=== PATIENT | female | born 1960 | race Caucasian/White ===

== ENCOUNTER 2017-04-09 16:50 | Inpatient (IN) | payer OTHER ==
[~2017-04-09] VITALS: Ht 162.6 cm; Wt 50.9 kg
[~2017-04-09 16:50] MED LIST: BUPR-175 PO; MELO15TA2 PO; ZOLO25TA PO
[2017-04-09 17:25] VITALS: BP 126/66; PULSE 110; RESP 20; TEMP 97.3; O2SAT 97
--- NOTE | 2017-04-09 18:40 | PD ---
HPI Chief Complaint: Suicide Ideation/Attempt Time Seen by Provider: 18:40 Travel History International Travel<30 days: No Contact w/Intl Traveler<30days: No Traveled to known affect area: No History of Present Illness HPI 56-year-old female presents to emergency department under Gómez act for psychiatric evaluation. Patient states she texted her grandson that she was going to kill herself. Patient states she denies suicidal homicidal ideations, but is overwhelmed with her life currently. Days that she does not need to be here. Denies illicit drug use. States that she did drink alcohol today but is not typically. Patient has history of RA and is on methotrexate and pain control, otherwise she states that she does not take any other medications. She has no other symptoms to report at this time. [facility] Past Medical History Anxiety: Yes Depression: Yes Diminished Hearing: No ?: Not Past Surgical History Other Surgery: Yes (INGUINAL HERNIA REPAIR) Social History Alcohol Use: No Tobacco Use: Yes (1 PPD) Substance Use: No Allergies-Medications (Allergen,Severity, Reaction): Coded Allergies: No Known Allergies (Verified , 04/09/17) Reported Meds & Prescriptions Reported Meds & Active Scripts Active Review of Systems Except as stated in HPI: all other systems reviewed are Neg Physical Exam Narrative GENERAL: Thin female patient, anxious, but in no acute distress SKIN: Focused skin assessment warm/dry. Full areas of ecchymosis on the bilateral upper extremities. HEAD: Normocephalic. EYES: No scleral icterus. No injection or drainage. NECK: Supple, trachea midline. No JVD or lymphadenopathy. CARDIOVASCULAR: Tachycardic rate and rhythm without murmurs, gallops, or rubs. RESPIRATORY: Breath sounds equal bilaterally. No accessory muscle use. GASTROINTESTINAL: Abdomen soft, non-tender, nondistended. MUSCULOSKELETAL: No cyanosis, or edema. BACK: Nontender without obvious deformity. No CVA tenderness. Data Data Last Documented VS Vital Signs Date Time Temp Pulse Resp B/P (MAP) Pulse Ox O2 Delivery O2 Flow Rate FiO2 04/09/17 17:25 97.3 110 20 126/66 (86) 97 Orders Orders Complete Blood Count With Diff (04/09/17 18:04) Comprehensive Metabolic Panel (04/09/17 18:04) Psych Screen (04/09/17 18:04) Urinalysis - C+S If Indicated (04/09/17 18:40) Drug Screen, Random Urine (04/09/17 18:40) Alcohol (Ethanol) (04/09/17 18:40) Salicylates (Aspirin) (04/09/17 18:40) Coag Profile (04/09/17 18:40) Labs Laboratory Tests Test 04/09/17 18:20 04/09/17 18:30 04/09/17 18:52 White Blood Count 7.4 TH/MM3 Red Blood Count 4.46 MIL/MM3 Hemoglobin 14.1 GM/DL Hematocrit 42.3 % Mean Corpuscular Volume 94.8 FL Mean Corpuscular Hemoglobin 31.5 PG Mean Corpuscular Hemoglobin Concent 33.3 % Red Cell Distribution Width 14.2 % Platelet Count 314 TH/MM3 Mean Platelet Volume 7.4 FL Neutrophils (%) (Auto) 82.4 % Lymphocytes (%) (Auto) 10.6 % Monocytes (%) (Auto) 5.4 % Eosinophils (%) (Auto) 0.6 % Basophils (%) (Auto) 1.0 % Neutrophils # (Auto) 6.1 TH/MM3 Lymphocytes # (Auto) 0.8 TH/MM3 Monocytes # (Auto) 0.4 TH/MM3 Eosinophils # (Auto) 0.0 TH/MM3 Basophils # (Auto) 0.1 TH/MM3 CBC Comment DIFF FINAL Differential Comment Blood Urea Nitrogen 12 MG/DL Creatinine 0.89 MG/DL Random Glucose 99 MG/DL Total Protein 7.7 GM/DL Albumin 4.2 GM/DL Calcium Level 9.4 MG/DL Alkaline Phosphatase 69 U/L Aspartate Amino Transf (AST/SGOT) 24 U/L Alanine Aminotransferase (ALT/SGPT) 38 U/L Total Bilirubin 0.3 MG/DL Sodium Level 139 MEQ/L Potassium Level 4.0 MEQ/L Chloride Level 104 MEQ/L Carbon Dioxide Level 24.5 MEQ/L Anion Gap 11 MEQ/L Estimat Glomerular Filtration Rate 65 ML/MIN Urine Color LIGHT-YELLOW Urine Turbidity CLEAR Urine pH 5.5 Urine Specific [place] 1.008 Urine Protein NEG mg/dL Urine Glucose (UA) NEG mg/dL Urine Ketones NEG mg/dL Urine Occult Blood NEG Urine Nitrite NEG Urine Bilirubin NEG Urine Urobilinogen LESS THAN 2.0 MG/DL Urine Leukocyte Esterase NEG Urine RBC LESS THAN 1 /hpf Urine WBC LESS THAN 1 /hpf Urine Squamous Epithelial Cells <1 /hpf Urine Bacteria RARE /hpf Urine Mucus FEW /lpf Microscopic Urinalysis Comment CULT NOT INDICATED Urine Opiates Screen NEG Urine Barbiturates Screen NEG Urine Amphetamines Screen NEG Urine Benzodiazepines Screen NEG Urine Cocaine Screen NEG Urine Cannabinoids Screen NEG Prothrombin Time 10.2 SEC Prothromb Time International Ratio 0.9 RATIO Activated Partial Thromboplast Time 23.3 SEC Salicylates Level LESS THAN 1.7 MG/DL MDM Medical Decision Making Medical Screen Exam Complete: Yes Emergency Medical Condition: Yes Medical Record Reviewed: Yes Differential Diagnosis Mood disorder versus personality disorder versus adjustment reaction disorder Narrative Course 56-year-old female presents to the department under Gómez act for psychiatric evaluation. Patient appears anxious but without distress. She is tachycardic, likely due to her anxiety. Work is without acute concern. Patient is medically cleared to undergo psychiatric screening for further evaluation and disposition. Mental health screening discussed with the patient. Psychiatric screen ordered. Diagnosis Primary Impression: Adjustment reaction with anxiety and depression Condition: Stable Mariam Willis Apr 09, 2017 18:40
[2017-04-09 19:18] LABS: AUTOMATED NEUTROPHIL # 6.1 TH/MM3 (1.8-7.7); BASOPHIL # 0.1 TH/MM3 (0-0.2); EOSINOPHIL % 0.6 % (0.0-4.0); HEMATOCRIT 42.3 % (35.0-46.0); HEMO FLAGS DIFF FINAL; LYMPH % 10.6 % (9.0-44.0); LYMPHOCYTE # 0.8 TH/MM3 (1.0-4.8); MEAN CELL VOLUME 94.8 FL (80.0-100.0); MEAN CORPUSCULAR HEMOGLOBIN 31.5 PG (27.0-34.0); MEAN CORPUSCULAR HGB CONC 33.3 % (32.0-36.0); MONO % 5.4 % (0.0-8.0); NEUT % 82.4 % (16.0-70.0); PLATELET COUNT 314 TH/MM3 (150-450); RED BLOOD COUNT 4.46 MIL/MM3 (4.00-5.30); RED CELL DISTRIBUTION WIDTH 14.2 % (11.6-17.2); WHITE BLOOD COUNT 7.4 TH/MM3 (4.0-11.0)
[2017-04-09 19:25] LABS: BACTERIA, URINE RARE /hpf; BLOOD, URINE NEG (NEG); COMMENT (UR) CULT NOT INDICATED; CULTURE IF INDICATED CULT NOT INDICATED; GLUCOSE,URINE NEG (NEG); KETONE, URINE NEG (NEG); MUCUS URINE FEW /lpf (OCC); NITRITE,URINE NEG (NEG); PH, URINE 5.5 (5.0-8.5); SQUAMOUS EPITHELIAL CELL URINE <1 /hpf (0-5); URINE COLOR LIGHT-YELLOW (YELLW/STRAW)
[2017-04-09 19:30] LABS: APTT (PATIENT) 23.3 SEC (24.3-30.1); INTERNATIONAL NORMALIZED RATIO 0.9 RATIO; PROTHROMBIN TIME - PATIENT 10.2 SEC (9.8-11.6)
[2017-04-09 19:47] LABS: ANION GAP 11 MEQ/L (5-15); BICARBONATE 24.5 MEQ/L (21.0-32.0); BLOOD UREA NITROGEN 12 MG/DL (7-18); CHLORIDE 104 MEQ/L (98-107); GLOMERULAR FILTRATION RATE 65 ML/MIN (>89); SODIUM (NA) 139 MEQ/L (136-145)
[2017-04-09 19:48] LABS: AST (GOT) 24 U/L (15-37)
[2017-04-09 19:50] LABS: ALKALINE PHOSPHATASE 69 U/L (45-117); ALT (GPT) 38 U/L (10-53); TOTAL BILIRUBIN ADULT 0.3 MG/DL (0.2-1.0)
[2017-04-10] MEDS ORDERED: traMADol HCL 50 MG TAB PO ONE (00:15)
[2017-04-10 06:21] VITALS: BP 144/81; PULSE 76; RESP 18; O2SAT 98
[2017-04-10] MEDS ORDERED: ALEN1TAB48 PO (08:39)
[2017-04-10] MEDS ORDERED: TRAM50TA PO (08:40)
[2017-04-10] MEDS ORDERED: FOLI400T PO (08:48)
[2017-04-10] MEDS ORDERED: METH2.5T PO (08:48)
[2017-04-10] MEDS ORDERED: TEMA15CA PO (08:49)
[2017-04-10] MEDS ORDERED: PRAM0.5T PO (08:49)
[2017-04-10] MEDS ORDERED: TRAZ50TA12 PO (08:50)
[2017-04-10] MEDS ORDERED: WELLTAB39 PO (08:52)
[2017-04-10] MEDS ORDERED: ZOLO100T PO (08:53)
[2017-04-10 14:24] VITALS: BP 152/96; PULSE 81; RESP 18; O2SAT 97
--- NOTE | 2017-04-10 14:55 | PD ---
History of Present Illness Chief Complaint: Suicide Ideation/Attempt Time Seen by Provider: 14:45 Travel History International Travel<30 Days: No Contact w/Intl Traveler<30days: No Known affected area: No Legal Status Legal Status: Gómez Act Gómez Act Signed By: Shaheen Amaya Gómez Act Comment: 2016 @ 0733 History of Present Illness: 56-year-old female brought in under a Gómze act for making suicidal statements. Since the patient got here and currently, the patient denies any suicidal ideation, plan or intent. She states she got frustrated due to pain from her rheumatoid arthritis and having come off her antidepressant medicines. Her cognition is intact and she has no psychotic symptoms. She is verbally willard for safety and she is competent to do so. This physician offered to place the patient back on her Wellbutrin, sertraline and tramadol, per her request and the patient is very agreeable to this she also states her will vouch for her safety and is willing to pick her up and care for her. Patient is interested and willing to see another physician when discharged from psychiatric emergency department. She would like outpatient follow up. [facility] Past Medical History Anxiety: Yes Depression: Yes Diminished Hearing: No ?: Not Past Surgical History Other Surgery: Yes (INGUINAL HERNIA REPAIR) Psychiatric History Psychiatric History Hx Psychiatric Treatment: DEPRESSION/ ANXIETY. Patient states she has only been getting depressed over the last week. She feels this is due to stopping her medicines 5 or 6 weeks ago. History of Inpatient Treatment: No Guns or firearms in home: No Social History Hx Alcohol Use: No Hx Tobacco Use: Yes (1 PPD) Hx Substance Use: No Substance Use Type: Alcohol Hx of Substance Use Treatment: No Allergies-Medications (Allergen,Severity, Reaction): Coded Allergies: No Known Allergies (Verified , 04/10/17) Per [facility] [phone] (on 04/10/2017). Reported Meds & Prescriptions Reported Meds & Active Scripts Active Reported Zoloft (Sertraline HCl) 100 Mg Tab 150 Mg PO DAILY Wellbutrin Xl 24 HR (Bupropion HCl) 300 Mg Tab 300 Mg PO DAILY Trazodone (Trazodone HCl) 50 Mg Tab 50 Mg PO HS Temazepam 15 Mg Cap 15 Mg PO HS Pramipexole (Pramipexole Dihydrochloride) 0.5 Mg Tab 0.5 Mg PO HS Methotrexate 2.5 Mg Tab 8 Tab PO Q7D Folic Acid 400 Mcg Tab 1 Mg PO DAILY Tramadol (Tramadol HCl) 50 Mg Tab 50 Mg PO Q4H PRN Alendronate (Alendronate Sodium) 70 Mg Tab 70 Mg PO Q7D Review of Systems Except as stated in HPI: all other systems reviewed are Neg Musculoskeletal: COMPLAINS OF: Joint pain, Stiffness, Back pain, Neck pain Exam Alert: Yes [place]: Person, Place, Date, Situation Mood: Calm Affect: Appropriate Speech: Clear, Logical Eye Contact: Normal Memory Intact: Immediate, Recent, Remote Insight/Judgement Adequate MDM Medical Decision Making Medical Record Reviewed: Yes Assessment/Plan Patient's medical record was reviewed and this case was discussed with nurse. Patient has been adamantly denying suicidal ideation, plan or intent since she got here to [place]. She would like her medicines refilled and she would like to go home to receive treatment on an outpatient basis. Her is being called to vouch for her safety and his ability to care for her and supervise. This physician feels she does not qualify for Gómez act and she does not qualify for involuntary psychiatric hospitalization. Orders Orders Complete Blood Count With Diff (04/09/17 18:04) Comprehensive Metabolic Panel (04/09/17 18:04) Psych Screen (04/09/17 18:04) Urinalysis - C+S If Indicated (04/09/17 18:40) Drug Screen, Random Urine (04/09/17 18:40) Alcohol (Ethanol) (04/09/17 18:40) Salicylates (Aspirin) (04/09/17 18:40) Coag Profile (04/09/17 18:40) Tramadol (Ultram) (04/10/17 00:15) Diet Regular Basic (04/10/17 Breakfast) Diet Regular Basic (04/10/17 Lunch) Diet Regular Basic (04/10/17 Dinner) Results Vital Signs Date Time Temp Pulse Resp B/P (MAP) Pulse Ox O2 Delivery O2 Flow Rate FiO2 04/10/17 14:24 81 18 152/96 (114) 97 Room Air 04/10/17 06:21 76 18 144/81 (102) 98 Room Air 04/09/17 17:25 97.3 110 20 126/66 (86) 97 Laboratory Tests Test 04/09/17 18:20 04/09/17 18:30 04/09/17 18:52 White Blood Count 7.4 Red Blood Count 4.46 Hemoglobin 14.1 Hematocrit 42.3 Mean Corpuscular Volume 94.8 Mean Corpuscular Hemoglobin 31.5 Mean Corpuscular Hemoglobin Concent 33.3 Red Cell Distribution Width 14.2 Platelet Count 314 Mean Platelet Volume 7.4 Neutrophils (%) (Auto) 82.4 Lymphocytes (%) (Auto) 10.6 Monocytes (%) (Auto) 5.4 Eosinophils (%) (Auto) 0.6 Basophils (%) (Auto) 1.0 Neutrophils # (Auto) 6.1 Lymphocytes # (Auto) 0.8 Monocytes # (Auto) 0.4 Eosinophils # (Auto) 0.0 Basophils # (Auto) 0.1 CBC Comment DIFF FINAL Differential Comment Blood Urea Nitrogen 12 Creatinine 0.89 Random Glucose 99 Total Protein 7.7 Albumin 4.2 Calcium Level 9.4 Alkaline Phosphatase 69 Aspartate Amino Transf (AST/SGOT) 24 Alanine Aminotransferase (ALT/SGPT) 38 Total Bilirubin 0.3 Sodium Level 139 Potassium Level 4.0 Chloride Level 104 Carbon Dioxide Level 24.5 Anion Gap 11 Estimat Glomerular Filtration Rate 65 Ethyl Alcohol Level 95 Urine Color LIGHT-YELLOW Urine Turbidity CLEAR Urine pH 5.5 Urine Specific [place] 1.008 Urine Protein NEG Urine Glucose (UA) NEG Urine Ketones NEG Urine Occult Blood NEG Urine Nitrite NEG Urine Bilirubin NEG Urine Urobilinogen LESS THAN 2.0 Urine Leukocyte Esterase NEG Urine RBC LESS THAN 1 Urine WBC LESS THAN 1 Urine Squamous Epithelial Cells <1 Urine Bacteria RARE Urine Mucus FEW Microscopic Urinalysis Comment CULT NOT INDICATED Urine Opiates Screen NEG Urine Barbiturates Screen NEG Urine Amphetamines Screen NEG Urine Benzodiazepines Screen NEG Urine Cocaine Screen NEG Urine Cannabinoids Screen NEG Prothrombin Time 10.2 Prothromb Time International Ratio 0.9 Activated Partial Thromboplast Time 23.3 Salicylates Level LESS THAN 1.7 Diagnosis Primary Impression: Adjustment disorder with mixed disturbance of emotions and conduct Condition: Stable Enio Larson MD Apr 10, 2017 14:55
[2017-04-10] MEDS ORDERED: buPROPion HCL 150 MG EXTENDED RELEASE TAB PO SCH (15:15)
[2017-04-10] MEDS ORDERED: LORazepam 2 MG/ML VIAL IM PRN ×2 (15:15)
[2017-04-10] MEDS ORDERED: METHOTREXATE 2.5 MG TAB PO SCH (15:15)
[2017-04-10] MEDS ORDERED: ALENDRONATE SODIUM 70 MG TAB PO SCH (15:15)
[2017-04-10] MEDS ORDERED: MAGNESIUM HYDROXIDE SUSP 30 ML CUP PO PRN (15:15)
[2017-04-10] MEDS ORDERED: LORazepam 1 MG TAB PO PRN (15:15)
[2017-04-10] MEDS ORDERED: LORazepam 0.5 MG TAB PO PRN (15:15)
[2017-04-10] MEDS ORDERED: ALUMINUM/MAGNESIUM/SIMETH 30 ML CUP PO PRN (15:15)
--- NOTE | 2017-04-10 15:22 | HHI.HP ---
Provisional Diagnosis Admission Date Vaughn I. Adjustment disorder with depressed mood Certification of Person's Competence To Provide Express and Informed Consent I have personally examined Gwen Hernandez , a person being served at [facility] on, Apr 10, 2017 15:13. Express and informed consent means consent voluntarily given in writing, by a competent person, after sufficient explanation and disclosure of the subject matter involved to enable the person to make a knowing and willful decision without any element of force, fraud, deceit, duress, or other form of constraint or coercion. This person is 18 years of age or older, is not now known to be incompetent to consent to treatment with a guardian advocate, and does not have a health care surrogate or proxy currently making medical treatment decisions. I have found this person to be one of the following: [Xx] Competent to provide express and informed consent, as defined above, for voluntary admission to this facility and is competent to provide express and informed consent for treatment. He/she has the consistent capacity to make well reasoned, willful, and knowing decisions concerning his or her medical or mental health treatment. The person fully and consistently understands the purpose of the admission for examination/placement and is fully capable of personally exercising all rights assured [place] Incompetent to provide express and informed consent to voluntary admission, and this is incompetent to provide express and informed consent to treatment. The person must be transferred to involuntary status and a petition for a guardian advocate filed with the Circuit Court. [] Refusing to provide express and informed consent to voluntary admission but is competent to provide express and informed consent for treatment. The person must be discharged or transferred to involuntary status. Form shall be completed within 24 hours of a person's arrival at the receiving facility and filed in the clinical record of each person: 1. Admitted on a voluntary basis 2. Permitted to provide express and informed consent to his/her own treatment 3. Allowed to transfer from involuntary to voluntary status 4. Prior to permitting a person to consent to his or her own treatment after having been previously found incompetent to consent to treatment. History of Present Illness Capacity: Has Capacity HPI This is a 56-year-old female who was brought in under a Gómez act for making suicidal threats to her grandson. Apparently she text and her grandson that she was going to jump off the [facility] the patient made the very same statement to the lawn technician who was in his patrol car with her at the time. Apparently the patient has become increasingly depressed over the last 5-6 weeks, she since she stopped taking her Wellbutrin and sertraline. She has an added stressor of being in conflict with her son, who resides at home with her and her . The was called and is willing to have the son move out to a hotel, overnight only. He does not feel he can care for, supervise or protect the patient adequately. Patient describes multiple symptoms of depression including depressed mood, anhedonia, suicidal ideation with plan, feelings of hopelessness and helplessness, decreased energy, diminished self-esteem, social withdrawal, appetite disturbance and sleep disturbance, etc. Finally, the patient has rheumatoid arthritis and reportedly she has Parkinson's disease. She is complaining of significant pain at this time. Review of Systems Except as stated in HPI: all other systems reviewed are Neg Musculoskeletal: COMPLAINS OF: Joint pain, Stiffness, Joint Swelling, Back pain , Neck pain Past Psych History Psychological trauma history Denied for psychological trauma. Has been treated as an outpatient. Violence risk - others (6 mos) Minimal Violence risk - self (6 mos) High Substance Abuse History Drugs/Alcohol past 12 months Drinking alcohol lately but denies drug abuse. Past Family Social History Coded Allergies: No Known Allergies (Verified , 04/10/17) Per [facility] [phone] (on 04/10/2017). Reported Medications Sertraline (Zoloft) 100 Mg Tab, 150 MG PO DAILY, #30 TAB 0 Refills 04/10/17 Bupropion HCl ER 24 HR (Wellbutrin Xl 24 HR) 300 Mg Tab, 300 MG PO DAILY for Control Depression, TAB 0 Refills 04/10/17 Trazodone (Trazodone) 50 Mg Tab, 50 MG PO HS for Control Depression, #30 TAB 0 Refills 04/10/17 Temazepam (Temazepam) 15 Mg Cap, 15 MG PO HS, #30 CAP 0 Refills 04/10/17 Pramipexole (Pramipexole) 0.5 Mg Tab, 0.5 MG PO HS for Parkinson Disease Mgmt, # 30 TAB 0 Refills 04/10/17 Methotrexate (Methotrexate) 2.5 Mg Tab, 8 TAB PO Q7D, TAB 0 Refills 04/10/17 Folic Acid (Folic Acid) 400 Mcg Tab, 1 MG PO DAILY for Nutritional Supplement, TAB 0 Refills 04/10/17 Tramadol (Tramadol) 50 Mg Tab, 50 MG PO Q4H Y for PAIN, TAB 0 Refills 04/10/17 Alendronate (Alendronate) 70 Mg Tab, 70 MG PO Q7D for Osteporosis Treatment, #4 TAB 0 Refills 04/10/17 Family History Positive for mood and anxiety. Social History Lives with her of many years and the [facility]. Son has moved back in with them and is causing conflicts. Patient denies a history of drug abuse but admits to drinking more as of late. She is not employed due to chronic physical illnesses. Patient's Strengths (min. 2) Verbal and has access to healthcare Physical Exam GENERAL: SKIN: Warm and dry. HEAD: Normocephalic. EYES: No scleral icterus. No injection or drainage. NECK: Supple, trachea midline. No JVD or lymphadenopathy. CARDIOVASCULAR: Regular rate and rhythm without murmurs, gallops, or rubs. RESPIRATORY: Breath sounds equal bilaterally. No accessory muscle use. GASTROINTESTINAL: Abdomen soft, non-tender, nondistended. MUSCULOSKELETAL: No cyanosis, or edema. BACK: Nontender without obvious deformity. No CVA tenderness. Vital Signs Vital Signs Date Time Temp Pulse Resp B/P (MAP) Pulse Ox O2 Delivery O2 Flow Rate FiO2 04/10/17 14:24 81 18 152/96 (114) 97 Room Air 04/09/17 17:25 97.3 Lab Results Test 04/09/17 18:20 04/09/17 18:30 04/09/17 18:52 White Blood Count 7.4 TH/MM3 Red Blood Count 4.46 MIL/MM3 Hemoglobin 14.1 GM/DL Hematocrit 42.3 % Mean Corpuscular Volume 94.8 FL Mean Corpuscular Hemoglobin 31.5 PG Mean Corpuscular Hemoglobin Concent 33.3 % Red Cell Distribution Width 14.2 % Platelet Count 314 TH/MM3 Mean Platelet Volume 7.4 FL Neutrophils (%) (Auto) 82.4 % Lymphocytes (%) (Auto) 10.6 % Monocytes (%) (Auto) 5.4 % Eosinophils (%) (Auto) 0.6 % Basophils (%) (Auto) 1.0 % Neutrophils # (Auto) 6.1 TH/MM3 Lymphocytes # (Auto) 0.8 TH/MM3 Monocytes # (Auto) 0.4 TH/MM3 Eosinophils # (Auto) 0.0 TH/MM3 Basophils # (Auto) 0.1 TH/MM3 CBC Comment DIFF FINAL Differential Comment Blood Urea Nitrogen 12 MG/DL Creatinine 0.89 MG/DL Random Glucose 99 MG/DL Total Protein 7.7 GM/DL Albumin 4.2 GM/DL Calcium Level 9.4 MG/DL Alkaline Phosphatase 69 U/L Aspartate Amino Transf (AST/SGOT) 24 U/L Alanine Aminotransferase (ALT/SGPT) 38 U/L Total Bilirubin 0.3 MG/DL Sodium Level 139 MEQ/L Potassium Level 4.0 MEQ/L Chloride Level 104 MEQ/L Carbon Dioxide Level 24.5 MEQ/L Anion Gap 11 MEQ/L Estimat Glomerular Filtration Rate 65 ML/MIN Ethyl Alcohol Level 95 MG/DL Urine Color LIGHT-YELLOW Urine Turbidity CLEAR Urine pH 5.5 Urine Specific [place] 1.008 Urine Protein NEG mg/dL Urine Glucose (UA) NEG mg/dL Urine Ketones NEG mg/dL Urine Occult Blood NEG Urine Nitrite NEG Urine Bilirubin NEG Urine Urobilinogen LESS THAN 2.0 MG/DL Urine Leukocyte Esterase NEG Urine RBC LESS THAN 1 /hpf Urine WBC LESS THAN 1 /hpf Urine Squamous Epithelial Cells <1 /hpf Urine Bacteria RARE /hpf Urine Mucus FEW /lpf Microscopic Urinalysis Comment CULT NOT INDICATED Urine Opiates Screen NEG Urine Barbiturates Screen NEG Urine Amphetamines Screen NEG Urine Benzodiazepines Screen NEG Urine Cocaine Screen NEG Urine Cannabinoids Screen NEG Prothrombin Time 10.2 SEC Prothromb Time International Ratio 0.9 RATIO Activated Partial Thromboplast Time 23.3 SEC Salicylates Level LESS THAN 1.7 MG/DL Mental Status Examination Speech: Unremarkable Orientation: x3 Memory: Unremarkable Thought Process: Organized, Goal Directed Thought Content: Unremarkable Hallucination Type: None Attention and Concentration: Good Suicidal Ideation: Yes Previous Suicide Attempts: No Homicidal Ideation: No Previous Homicide Attempts: No Insight: Fair Judgment: Impulsive Affect: Anxious, Sad Mood: Sad, Anxious Motor Activity: Normal gait Assessment & Plan Problem List: (1) Adjustment disorder with mixed disturbance of emotions and conduct ICD Codes: F43.25 - Adjustment disorder with mixed disturbance of emotions and conduct Status: Acute Assessment & Plan Estimated LOS: days patient has told her grandson and the lawn technician who Gómez acted her that she is suicidal and has a plan to jump off the [facility]. She is having significant conflict with her son. Her feels unable to keep her safe and vouched for her safety. She is experiencing chronic and debilitating pain. She is drinking alcohol. This physician is admitting her because she is at high risk for self-harm. This physician is ordering a CBC and metabolic panel to determine if an infectious or metabolic process is causing or contributing to her depression. I am obtaining a physical medicine consult to assist with the evaluation and treatment of her reported rheumatoid arthritis and Parkinson's disease. She will also have her thyroid stimulating hormone, vitamin B-12 and vitamin D levels checked to ascertain if a deficiency in these areas is causing or contributing to her depression. She will have an EKG to make sure her psychotropic medicines do not cause cardiac conduction deficits. She will be placed back on her antidepressant and pain relieving medicines. This physician spoke to the nurse, Sammie, regarding the patient's behavior and her 's reports. Case management will also be involved to assist with information gathering and disposition planning. Enio Larson MD Apr 10, 2017 15:22
[2017-04-10] MEDS: NICOTINE 21 MG/24 HR PATCH T-DERMAL SCH (17:30)
[2017-04-10 17:55] VITALS: BP 143/90; PULSE 91; RESP 20; O2SAT 98
[2017-04-10] MEDS: REMOVE OLD NICODERM (NICOTINE) PATCH T-DERMAL SCH (21:00)
[2017-04-10] MEDS ORDERED: TEMAZEPAM 15 MG CAP PO SCH (21:00)
[2017-04-10] MEDS: traZODone HCL 50 MG TAB PO SCH (21:00)
[2017-04-10] MEDS: PRAMIPEXOLE DIHYDROCHLORIDE 0.25 MG TAB PO SCH (21:00)
[2017-04-10] MEDS ORDERED: NON-FORMULARY DRUG (Pramipexole 0.5 MG) PO SCH (21:00)
[2017-04-10] MEDS: SERTRALINE HCL 50 MG TAB PO SCH (21:30)
[2017-04-10] MEDS: FOLIC ACID 1 MG TAB PO SCH (21:30)
[2017-04-10 22:15] VITALS: BP 144/92; PULSE 88; RESP 18; TEMP 97.8
[2017-04-10 22:19] VITALS: BP 144/92; PULSE 88; RESP 18; TEMP 97.8; O2SAT 99
[2017-04-11 05:42] VITALS: BP 160/104; PULSE 84; RESP 17; TEMP 97.8; O2SAT 96
[2017-04-11] MEDS: NICOTINE 21 MG/24 HR PATCH T-DERMAL SCH (08:46)
[2017-04-11] MEDS: FOLIC ACID 1 MG TAB PO SCH (08:46)
[2017-04-11] MEDS: traMADol HCL 50 MG TAB PO PRN ×3 (08:46→14:02)
[2017-04-11] MEDS: SERTRALINE HCL 50 MG TAB PO SCH (08:46)
[2017-04-11] MEDS: buPROPion HCL 150 MG SUSTAINED RELEASE TAB PO SCH ×2 (08:47→20:42)
[2017-04-11 09:37] LABS: AUTOMATED NEUTROPHIL # 3.4 TH/MM3 (1.8-7.7); BASOPHIL # 0.1 TH/MM3 (0-0.2); BASOPHIL % 1.4 % (0.0-2.0); EOSINOPHIL # 0.3 TH/MM3 (0-0.4); EOSINOPHIL % 5.1 % (0.0-4.0); HEMATOCRIT 42.7 % (35.0-46.0); LYMPH % 19.6 % (9.0-44.0); MEAN CELL VOLUME 94.9 FL (80.0-100.0); MEAN CORPUSCULAR HEMOGLOBIN 32.1 PG (27.0-34.0); MEAN CORPUSCULAR HGB CONC 33.8 % (32.0-36.0); NEUT % 66.9 % (16.0-70.0); PLATELET COUNT 275 TH/MM3 (150-450); RED CELL DISTRIBUTION WIDTH 13.5 % (11.6-17.2); WHITE BLOOD COUNT 5.1 TH/MM3 (4.0-11.0)
[2017-04-11 10:02] LABS: HEMO FLAGS AUTO DIFF
[2017-04-11 10:03] LABS: ANION GAP 4 MEQ/L (5-15); AST (GOT) 21 U/L (15-37); BICARBONATE 30.6 MEQ/L (21.0-32.0); BLOOD UREA NITROGEN 15 MG/DL (7-18); CHLORIDE 103 MEQ/L (98-107); GLOMERULAR FILTRATION RATE 64 ML/MIN (>89); POTASSIUM 4.4 MEQ/L (3.5-5.1); SODIUM (NA) 138 MEQ/L (136-145)
[2017-04-11 10:30] LABS: ALKALINE PHOSPHATASE 74 U/L (45-117); ALT (GPT) 33 U/L (10-53); HDL CHOLESTEROL 58.1 MG/DL (40.0-60.0); LDL CHOLESTEROL 138 MG/DL (0-99); TOTAL BILIRUBIN ADULT 0.6 MG/DL (0.2-1.0)
[2017-04-11 10:47] LABS: SCAN/DIFF AUTO DIFF CONFIRMED
--- NOTE | 2017-04-11 11:15 | EKG ---
Date Performed: 04/11/2017 Time Performed: 07:17:24 PTAGE: 56 years EKG: Sinus rhythm WITH SINUS ARRHYTHMIA NORMAL ECG NO PREVIOUS TRACING DOCTOR: Jan Elliott Interpretating Date/Time 04/11/2017 11:12:23
--- NOTE | 2017-04-11 11:35 | PD.CONS ---
HPI Service [facility] Consult Requested By Reason for Consult medical management Primary Care Physician Frances Deshpande D.O. Diagnoses: History of Present Illness patient is a 56 y/o female with history of rheumatoid arthritis and osteoarthritis who's been admitted to the psych unit because of suicidal ideation. at the time of my evaluation she was resting comfortably with no distress. she said that she had some pain to both hands but Tramadol helps. she denied any other complaints including chest pain, abdominal pain, sob.d/w the RN at the bedside. Review of Systems Constitutional: DENIES: Fever, Weight loss, Chills, Night Sweats Eyes: DENIES: Blurred vision, Diplopia, Vision loss, Double Vision Ears, nose, mouth, throat: DENIES: Tinnitus, Vertigo, Throat pain, Epistaxis Respiratory: DENIES: Apneas, Cough, Snoring, Wheezing, Hemoptysis, Sputum production, Shortness of breath Cardiovascular: DENIES: Chest pain, Palpitations, Syncope, Dyspnea on Exertion , PND, Lower Extremity Edema, Orthopnea, Claudication Gastrointestinal: DENIES: Abdominal pain, Black stools, Bloody stools, Constipation, Diarrhea, Nausea, Vomiting, Difficulty Swallowing, Anorexia Genitourinary: DENIES: Urinary frequency, Urgency, Hematuria, Dysuria Musculoskeletal: COMPLAINS OF: Joint pain (both hands.), DENIES: Muscle aches, Stiffness, Joint Swelling Integumentary: DENIES: Rash Neurologic: DENIES: Abnormal gait, Headache, Localized weakness, Paresthesias, Seizures, Speech Problems, Tremor, Poor Balance Psychiatric: COMPLAINS OF: Suicidal Ideation, DENIES: Anxiety, Confusion, Mood changes, Depression, Hallucinations, Agitation, Homicidal Ideation, Delusions Past Family Social History Allergies: Coded Allergies: No Known Allergies (Verified , 04/10/17) Per [facility] [phone] (on 04/10/2017). Past Medical History rheumatoid arthritis osteoporosis Past Surgical History hip replacement Reported Medications methotrexate tramadol folic acid alendronate wellbutrin sertraline trazodone Active Ordered Medications Current Medications Tramadol HCl (Ultram) 50 mg ONCE ONCE PO Last administered on 04/10/17t 00:43 ; Start 04/10/17 at 00:15; Stop 04/10/17 at 00:16; Status DC Lorazepam (Ativan) 1 mg Q6H PRN PO MODERATE TO SEVERE ANXIETY Last administered on 04/10/17 21:30; Start 04/10/17 at 15:15 Lorazepam (Ativan Inj) 1 mg Q6H PRN IM MODERATE TO SEVERE ANXIETY; Start at 15:15 Lorazepam (Ativan) 0.5 mg Q12H PRN PO MODERATE TO SEVERE ANXIETY; Start at 15:15; Stop 04/10/17 at 16:49; Status DC Lorazepam (Ativan Inj) 0.5 mg Q12H PRN IM MODERATE TO SEVERE ANXIETY; Start at 15:15; Stop 04/10/17 at 16:46; Status DC Acetaminophen (Tylenol) 650 mg Q4H PRN PO Pain 1-5 or Temp >101F; Start at 15:15 Magnesium Hydroxide (Milk Of Magnesia Liq) 30 ml DAILY PRN PO CONSTIPATION; Start 04/10/17 at 15:15 Al Hydrox/Mg Hydrox/Simethicone (Mag-Al Plus Susp Liq) 30 ml Q6H PRN PO DYSPEPSIA; Start 04/10/17 at 15:15 Alendronate Sodium (Fosamax) 70 mg Q7D PO ; Start 04/10/17 at 15:15; Stop at 16:45; Status DC Bupropion HCl (Wellbutrin Xl 24 Hr) 300 mg DAILY PO ; Start 04/10/17 at 15:15; Status UNV Folic Acid (Folate) 1 mg DAILY PO Last administered on 04/11/17 08:46; Start 04/10/17 at 17:00 Methotrexate (Rheumatrex) 20 mg Q7D PO ; Start 04/10/17 at 15:15; Status UNV Sertraline HCl (Zoloft) 150 mg DAILY PO Last administered on 04/11/17 08:46; Start 04/10/17 at 17:15 Temazepam (Restoril) 15 mg HS PO Last administered on 04/10/17 21:00; Start at 21:00 Tramadol HCl (Ultram) 50 mg Q4H PRN PO PAIN SCALE 6 TO 10 Last administered on 04/11/17 10:38; Start 04/10/17 at 15:15 Trazodone HCl (Desyrel) 50 mg HS PO Last administered on 04/10/17 21:00; Start 04/10/17 at 21:00 Non-Formulary Medication 0.5 mg HS PO ; Start 04/10/17 at 21:00; Status UNV Bupropion HCl (Wellbutrin Sr) 150 mg BID PO Last administered on 04/11/17 08: 47; Start 04/11/17 at 09:00 Pramipexole Dihydrochloride (Mirapex) 0.5 mg HS PO ; Start 04/10/17 at 21:00 Nicotine (Habitrol 21 Mg Patch.24 Hr) 1 patch DAILY T-DERMAL Last administered on 04/11/17 08:46; Start 04/10/17 at 17:30 Miscellaneous Information 1 HS T-DERMAL ; Start 04/10/17 at 21:00 Influenza Virus Vaccine (Flu (Quadrivalent) Vaccine Inj) 0.5 ml ONCE ONCE IM ; Start 04/12/17 at 10:00; Stop 04/12/17 at 10:01; Status Cancel Social History smokes a pack a day- no drinking. Physical Exam Vital Signs Vital Signs Date Time Temp Pulse Resp B/P (MAP) Pulse Ox O2 Delivery O2 Flow Rate FiO2 04/11/17 05:42 97.8 84 17 160/104 (122) 96 04/10/17 22:19 97.8 88 18 144/92 (109) 99 04/10/17 22:15 97.8 88 18 144/92 (109) 04/10/17 17:55 91 20 143/90 (107) 98 Room Air 04/10/17 14:24 81 18 152/96 (114) 97 Room Air Physical Exam GENERAL: This is a well-nourished, well-developed patient, in no apparent distress. SKIN: No rashes, ecchymoses or lesions. Cool and dry. HEAD: Atraumatic. Normocephalic. No temporal or scalp tenderness. EYES: Pupils equal round and reactive. Extraocular motions intact. No scleral icterus. No injection or drainage. ENT: Nose without bleeding, purulent drainage or septal hematoma. Throat without erythema, tonsillar hypertrophy or exudate. Uvula midline. Airway patent. NECK: Trachea midline. No JVD or lymphadenopathy. Supple, nontender, no meningeal signs. CARDIOVASCULAR: Regular rate and rhythm without murmurs, gallops, or rubs. RESPIRATORY: Clear to auscultation. Breath sounds equal bilaterally. No wheezes , rales, or rhonchi. GASTROINTESTINAL: Abdomen soft, non-tender, nondistended. No hepato-splenomegaly , or palpable masses. No guarding. MUSCULOSKELETAL: Extremities without clubbing, cyanosis, or edema. No joint tenderness, effusion, or edema noted. No calf tenderness. Negative Homans sign bilaterally. NEUROLOGICAL: Awake and alert. Cranial nerves II through XII intact. Motor and sensory grossly within normal limits. Five out of 5 muscle strength in all muscle groups. Normal speech. Laboratory Laboratory Tests Test 04/11/17 08:56 White Blood Count 5.1 Red Blood Count 4.50 Hemoglobin 14.4 Hematocrit 42.7 Mean Corpuscular Volume 94.9 Mean Corpuscular Hemoglobin 32.1 Mean Corpuscular Hemoglobin Concent 33.8 Red Cell Distribution Width 13.5 Platelet Count 275 Mean Platelet Volume 8.0 Neutrophils (%) (Auto) 66.9 Lymphocytes (%) (Auto) 19.6 Monocytes (%) (Auto) 7.0 Eosinophils (%) (Auto) 5.1 Basophils (%) (Auto) 1.4 Neutrophils # (Auto) 3.4 Lymphocytes # (Auto) 1.0 Monocytes # (Auto) 0.4 Eosinophils # (Auto) 0.3 Basophils # (Auto) 0.1 CBC Comment AUTO DIFF Differential Comment AUTO DIFF CONFIRMED Blood Urea Nitrogen 15 Creatinine 0.91 Random Glucose 85 Total Protein 6.8 Albumin 3.7 Calcium Level 9.2 Alkaline Phosphatase 74 Aspartate Amino Transf (AST/SGOT) 21 Alanine Aminotransferase (ALT/SGPT) 33 Total Bilirubin 0.6 Sodium Level 138 Potassium Level 4.4 Chloride Level 103 Carbon Dioxide Level 30.6 Anion Gap 4 Estimat Glomerular Filtration Rate 64 Triglycerides Level 201 Cholesterol Level 236 LDL Cholesterol 138 HDL Cholesterol 58.1 Cholesterol/HDL Ratio 4.06 Vitamin B12 Level 541 Thyroid Stimulating Hormone 3rd Gen 0.941 Result Diagram: 04/11/1756 04/11/1756 Assessment and Plan Assessment and Plan A/P -suicidal ideation; management per psych -RA; continue methotrexate and folic acid- pain control with Tramadol -osteoporosis- f/u as outpatient -elevated BP's- suspect due to anxiety; clonidine prn for now -dyslipidemia; f/u as outpatient. thank you for the consult. [facility] will sign off and see her as needed. Discussed Condition With the patient and RN. Yazan Rogel MD Apr 11, 2017 11:35
[2017-04-11] MEDS ORDERED: cloNIDine HCL 0.1 MG TAB PO PRN (11:45)
[2017-04-11 11:50] VITALS: BP 109/83; PULSE 100
[2017-04-11 12:36] LABS: HEMOGLOBIN A1a 0.9 %; HEMOGLOBIN A1b 1.6 %; HEMOGLOBIN LA1C 2.3 %; HEMOGLOBIN P3 4.4 %
[2017-04-11] MEDS ORDERED: LORazepam 2 MG TAB PO PRN (12:45)
[2017-04-11] MEDS ORDERED: LORazepam 1 MG TAB PO PRN (12:45)
[2017-04-11] MEDS ORDERED: FLUMAZENIL 0.5 MG/5 ML VIAL IV PUSH PRN (12:45)
[2017-04-11] MEDS ORDERED: ALUMINUM/MAGNESIUM/SIMETH 30 ML CUP PO PRN (12:45)
[2017-04-11] MEDS ORDERED: HALOPERIDOL LACTATE 5 MG/ML AMP IM PRN (12:45)
[2017-04-11] MEDS ORDERED: LORazepam 2 MG/ML VIAL IV PUSH PRN ×4 (12:45)
[2017-04-11] MEDS ORDERED: ACETAMINOPHEN 325 MG TAB PO PRN (12:45)
[2017-04-11] MEDS ORDERED: MAGNESIUM HYDROXIDE SUSP 30 ML CUP PO PRN (12:45)
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
[2017-04-11 14:47] VITALS: BP 137/86; PULSE 91
[2017-04-11] MEDS: traZODone HCL 50 MG TAB PO SCH (20:42)
[2017-04-11] MEDS: PRAMIPEXOLE DIHYDROCHLORIDE 0.25 MG TAB PO SCH (20:43)
[2017-04-11] MEDS: hydrOXYzine HCL 50 MG TAB PO PRN (20:45)
[2017-04-11] MEDS: REMOVE OLD NICODERM (NICOTINE) PATCH T-DERMAL SCH (21:00)
[2017-04-12 05:37] VITALS: BP 113/70; PULSE 78; RESP 16; TEMP 98.4
--- NOTE | 2017-04-12 07:01 | PD.PSY.CON ---
Provisional Diagnosis Admission Date Apr 10, 2017 at 15:07 Roberts I. 1. Adjustment disorder with mixed disturbance of emotions and conduct Roberts II. Deferred History of Present Illness Service Psychiatry Consult Requested By Dr. Brown Reason for Consult Second opinion for involuntary psychiatric hospitalization Primary Care Physician Frances Deshpande D.O. HPI From Dr. Larson's H&P: This is a 56-year-old female who was brought in under a G[place]mez act for making suicidal threats to her grandson. Apparently she text and her grandson that she was going to jump off the [place] the patient made the very same statement to the lawn care worker who was in his patrol car with her at the time. Apparently the patient has become increasingly depressed over the last 5-6 weeks, she since she stopped taking her Wellbutrin and sertraline. She has an added stressor of being in conflict with her son, who resides at home with her and her . The was called and is willing to have the son move out to a hotel, overnight only. He does not feel he can care for, supervise or protect the patient adequately. Patient describes multiple symptoms of depression including depressed mood, anhedonia, suicidal ideation with plan, feelings of hopelessness and helplessness, decreased energy, diminished self-esteem, social withdrawal, appetite disturbance and sleep disturbance, etc. Finally, the patient has rheumatoid arthritis and reportedly she has Parkinson's disease. She is complaining of significant pain at this time. On my examination today: Patient seen and examined. Chart reviewed. Patient reports that she stopped her psychotropic medications 6 weeks ago. She text that her family member regarding suicide because "I wanted them to stop screaming all the time. I thought if I said that may be date stop." She somewhat halfheartedly denies suicidal ideation now. She does admit to feeling depressed. Denies hopelessness or worthlessness. Endorses several stressors including medical stressors of rheumatoid arthritis and kidney disease. Also is quite despondent because she cannot work. Sleep and appetite poor. No hypomanic or manic symptoms. No psychotic symptoms. Remainder of the psychiatric ROS is negative. Past psychiatric history: Patient endorses a history of depression. Follows with Dr. Riggs. Denies a history of psychiatric admissions or suicide attempts. Family history: Patient reports a son with bipolar disorder. Chemical dependency history: Patient denies any abuse of drugs or alcohol. Social history: Patient reports that she lives with her and son. She has 2 other children. 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 She is not presently able to work. Review of Systems Except as stated in HPI: all other systems reviewed are Neg Past Family Social History Coded Allergies: No Known Allergies (Verified , 04/10/17) Per [facility] [phone] (on 04/10/2017). Past Medical History See electronic medical record Reported Medications Sertraline (Zoloft) 100 Mg Tab, 150 MG PO DAILY, #30 TAB 0 Refills 04/10/17 Bupropion HCl ER 24 HR (Wellbutrin Xl 24 HR) 300 Mg Tab, 300 MG PO DAILY for Control Depression, TAB 0 Refills 04/10/17 Trazodone (Trazodone) 50 Mg Tab, 50 MG PO HS for Control Depression, #30 TAB 0 Refills 04/10/17 Temazepam (Temazepam) 15 Mg Cap, 15 MG PO HS, #30 CAP 0 Refills 04/10/17 Pramipexole (Pramipexole) 0.5 Mg Tab, 0.5 MG PO HS for Parkinson Disease Mgmt, # 30 TAB 0 Refills 04/10/17 Methotrexate (Methotrexate) 2.5 Mg Tab, 8 TAB PO Q7D, TAB 0 Refills 04/10/17 Folic Acid (Folic Acid) 400 Mcg Tab, 1 MG PO DAILY for Nutritional Supplement, TAB 0 Refills 04/10/17 Tramadol (Tramadol) 50 Mg Tab, 50 MG PO Q4H Y for PAIN, TAB 0 Refills 04/10/17 Alendronate (Alendronate) 70 Mg Tab, 70 MG PO Q7D for Osteporosis Treatment, #4 TAB 0 Refills 04/10/17 Current Medications Medications (Trade) Dose Ordered Sig/Harper Route Start Time Stop Time Status Last Admin (Tylenol) 650 mg Q4H PRN PO 04/10/17 15:15 (Milk Of Magnesia Liq) 30 ml DAILY PRN PO 04/10/17 15:15 (Mag-Al Plus Susp Liq) 30 ml Q6H PRN PO 04/10/17 15:15 (Folate) 1 mg DAILY PO 04/10/17 17:00 04/11/17 08:46 (Zoloft) 150 mg DAILY PO 04/10/17 17:15 04/11/17 08:46 (Ultram) 50 mg Q4H PRN PO 04/10/17 15:15 04/11/17 14:02 (Desyrel) 50 mg HS PO 04/10/17 21:00 04/11/17 20:42 (Wellbutrin Sr) 150 mg BID PO 04/11/17 09:00 04/11/17 20:42 (Mirapex) 0.5 mg HS PO 04/10/17 21:00 04/11/17 20:43 (Habitrol 21 Mg Patch.24 Hr) 1 patch DAILY T-DERMAL 04/10/17 17:30 04/11/17 08:46 Miscellaneous Information 1 HS T-DERMAL 04/10/17 21:00 (Catapres) 0.1 mg Q8HR PRN PO 04/11/17 11:45 (Tylenol) 650 mg Q4H PRN PO 04/11/17 12:45 (Milk Of Magnesia Liq) 30 ml DAILY PRN PO 04/11/17 12:45 (Mag-Al Plus Susp Liq) 30 ml Q6H PRN PO 04/11/17 12:45 (Atarax) 50 mg Q6H PRN PO 04/11/17 12:45 04/11/17 20:45 (Romazicon Inj) 0.2 mg Q1M PRN IV PUSH 04/11/17 12:45 (Ativan) 1 mg Q4H PRN PO 04/11/17 12:45 (Ativan Inj) 1 mg Q4H PRN IV PUSH 04/11/17 12:45 (Ativan) 2 mg Q2H PRN PO 04/11/17 12:45 (Ativan Inj) 2 mg Q2H PRN IV PUSH 04/11/17 12:45 (Ativan Inj) 2 mg Q1H PRN IV PUSH 04/11/17 12:45 (Ativan Inj) 2 mg Q15M PRN IV PUSH 04/11/17 12:45 (Haldol Inj) 2 mg Q15M PRN IM 04/11/17 12:45 Patient's Strengths (min. 2) In a monitored setting. Verbally fluent. Physical Exam Physical exam completed by hospitalist product management consultant. On my examination today, the patient appears to be in no acute physical distress. No motor abnormalities noted. Labs and vitals reviewed: Vital Signs Vital Signs Date Time Temp Pulse Resp B/P (MAP) Pulse Ox O2 Delivery O2 Flow Rate FiO2 04/12/17 05:37 98.4 78 16 113/70 (84) 04/11/17 05:42 96 04/10/17 17:55 Room Air Lab Results Test 04/11/17 08:56 White Blood Count 5.1 TH/MM3 Red Blood Count 4.50 MIL/MM3 Hemoglobin 14.4 GM/DL Hematocrit 42.7 % Mean Corpuscular Volume 94.9 FL Mean Corpuscular Hemoglobin 32.1 PG Mean Corpuscular Hemoglobin Concent 33.8 % Red Cell Distribution Width 13.5 % Platelet Count 275 TH/MM3 Mean Platelet Volume 8.0 FL Neutrophils (%) (Auto) 66.9 % Lymphocytes (%) (Auto) 19.6 % Monocytes (%) (Auto) 7.0 % Eosinophils (%) (Auto) 5.1 % Basophils (%) (Auto) 1.4 % Neutrophils # (Auto) 3.4 TH/MM3 Lymphocytes # (Auto) 1.0 TH/MM3 Monocytes # (Auto) 0.4 TH/MM3 Eosinophils # (Auto) 0.3 TH/MM3 Basophils # (Auto) 0.1 TH/MM3 CBC Comment AUTO DIFF Differential Comment AUTO DIFF CONFIRMED Blood Urea Nitrogen 15 MG/DL Creatinine 0.91 MG/DL Random Glucose 85 MG/DL Total Protein 6.8 GM/DL Albumin 3.7 GM/DL Calcium Level 9.2 MG/DL Alkaline Phosphatase 74 U/L Aspartate Amino Transf (AST/SGOT) 21 U/L Alanine Aminotransferase (ALT/SGPT) 33 U/L Total Bilirubin 0.6 MG/DL Sodium Level 138 MEQ/L Potassium Level 4.4 MEQ/L Chloride Level 103 MEQ/L Carbon Dioxide Level 30.6 MEQ/L Anion Gap 4 MEQ/L Estimat Glomerular Filtration Rate 64 ML/MIN Hemoglobin A1c 5.5 % Triglycerides Level 201 MG/DL Cholesterol Level 236 MG/DL LDL Cholesterol 138 MG/DL HDL Cholesterol 58.1 MG/DL Cholesterol/HDL Ratio 4.06 RATIO Vitamin B12 Level 541 PG/ML 25-Hydroxy Vitamin D Total 30.7 ng/ML Thyroid Stimulating Hormone 3rd Gen 0.941 uIU/ML Mental Status Examination Speech: Unremarkable Orientation: x3 Memory: Unremarkable Thought Process: Logical, Linear Thought Content: Unremarkable Hallucination Type: None Attention and Concentration: Good Suicidal Ideation: No Previous Suicide Attempts: No Homicidal Ideation: No Previous Homicide Attempts: No Insight: Poor Judgment: Poor Affect: Sad Mood: Sad Motor Activity: Normal gait Assessment & Plan Problem List: (1) Adjustment disorder with mixed disturbance of emotions and conduct ICD Codes: F43.25 - Adjustment disorder with mixed disturbance of emotions and conduct Status: Acute Assessment & Plan Given the circumstances of the patient's presentation here and her presentation on my examination today, I concur with Dr. Brown that the patient meets criteria for involuntary psychiatric hospitalization under the G[place]mez act. I have completed the second opinion paperwork. Further care as per Dr. Brown. Thank you very much for this consultation. Signing off. Request HC Surrog/Guard Advoc?: No Veto Snyder MD Apr 12, 2017 07:00
[2017-04-12] MEDS ORDERED: NICOTINE 21 MG/24 HR PATCH T-DERMAL SCH (09:00)
[2017-04-12] MEDS: NICOTINE 21 MG/24 HR PATCH T-DERMAL SCH (09:00)
[2017-04-12] MEDS ORDERED: INFLUENZA VIRUS VACCINE (QUADRIVALENT) 0.5 ML SYR IM ONE (10:00)
[2017-04-12] MEDS: buPROPion HCL 150 MG SUSTAINED RELEASE TAB PO SCH ×2 (10:52→21:45)
[2017-04-12] MEDS: FOLIC ACID 1 MG TAB PO SCH (10:53)
[2017-04-12] MEDS: SERTRALINE HCL 50 MG TAB PO SCH (10:53)
[2017-04-12] MEDS: ACETAMINOPHEN 325 MG TAB PO PRN ×2 (10:54→21:45)
--- NOTE | 2017-04-12 13:55 | HHI.PYPN ---
Subjective Remarks Patient seen in room with nurse Laura. Chart review. Patient compliant medication. Patient states she slept well last night for the first time in a long time. Now somewhat vaguely denies suicidality. For now continue treatment Review of Systems Except as stated in HPI: all other systems reviewed are Neg Objective Alert: Yes [place]: Person, Place, Date, Situation Mood: Calm, Depressed Affect: Other (good range and intensity) Memory Intact: Immediate, Recent, Remote Hallucinations: Other (denies) Delusions: No Delusion Type: Other (denies) Suicidal: Ideation (denies at this time) Homicidal: Ideation (denies) Insight/Judgment Very poor Vitals/IOs Vital Signs Date Time Temp Pulse Resp B/P (MAP) Pulse Ox O2 Delivery O2 Flow Rate FiO2 04/12/17 12:00 16 04/12/17 05:37 98.4 78 113/70 (84) 04/11/17 05:42 96 04/10/17 17:55 Room Air Intake and Output 04/12/17 04/12/17 04/12/17 07:59 15:59 23:59 Intake Total 0 ml Balance 0 ml Assessment & Plan Problem List: (1) Adjustment disorder with mixed disturbance of emotions and conduct ICD Codes: F43.25 - Adjustment disorder with mixed disturbance of emotions and conduct Status: Acute Assessment & Plan Estimated LOS: days patient continues vaguely suicidal, compliant medications. For now continue treatment Justification for Cont. Inpt. At this time patient will decompensate if placed in a lower level of care Discharge Planning To be determined Request HC Surrog/Guard Advoc?: No Juan Carlos Brown MD Apr 12, 2017 13:55
[2017-04-12] MEDS: traMADol HCL 50 MG TAB PO PRN ×2 (14:48→21:46)
[2017-04-12 17:46] VITALS: BP 136/69; PULSE 117; RESP 17; TEMP 97.8; O2SAT 97
[2017-04-12] MEDS: REMOVE OLD NICODERM (NICOTINE) PATCH T-DERMAL SCH (21:00)
[2017-04-12] MEDS: traZODone HCL 50 MG TAB PO SCH (21:45)
[2017-04-12] MEDS: PRAMIPEXOLE DIHYDROCHLORIDE 0.25 MG TAB PO SCH (21:46)
[2017-04-12 21:48] VITALS: PULSE 92
[2017-04-13 06:20] VITALS: BP 116/60; PULSE 74; RESP 17; TEMP 98; O2SAT 96
[2017-04-13] MEDS: NICOTINE 21 MG/24 HR PATCH T-DERMAL SCH (09:00)
[2017-04-13] MEDS: FOLIC ACID 1 MG TAB PO SCH (09:14)
[2017-04-13] MEDS: SERTRALINE HCL 50 MG TAB PO SCH (09:14)
[2017-04-13] MEDS: buPROPion HCL 150 MG SUSTAINED RELEASE TAB PO SCH ×2 (09:14→20:55)
[2017-04-13] MEDS: traMADol HCL 50 MG TAB PO PRN ×2 (09:56→20:55)
--- NOTE | 2017-04-13 16:35 | HHI.PYPN ---
Subjective Remarks Pt seen and discussed with staff. She has had no problems on unit today. She reports that mood is improving and she has not had suicidal ideations today. Stress is lower now that son is out the home. Socializing on unit. She is compliant and cooperative with care. Objective Alert: Yes G[place]: Person, Place, Date, Situation Mood: Calm, Depressed Affect: Restricted Memory Intact: Immediate, Recent, Remote Hallucinations: Other (denies) Delusions: No Delusion Type: Other (denies) Suicidal: Ideation (denies at this time) Homicidal: Ideation (denies) Insight/Judgment fair Vitals/IOs Vital Signs Date Time Temp Pulse Resp B/P (MAP) Pulse Ox O2 Delivery O2 Flow Rate FiO2 04/13/17 10:56 14 04/13/17 06:20 98.0 74 116/60 (78) 96 04/10/17 17:55 Room Air Intake and Output 04/13/17 04/13/17 04/14/17 08:00 16:00 00:00 Intake Total 480 ml Balance 480 ml Assessment & Plan Problem List: (1) Adjustment disorder with mixed disturbance of emotions and conduct ICD Codes: F43.25 - Adjustment disorder with mixed disturbance of emotions and conduct Status: Acute Assessment & Plan Pt is improving. Continue current tx plan. Estimated LOS: days Justification for Cont. Inpt. risk of decompensaiton Request HC Surrog/Guard Advoc?: Kacey Oleary MD Apr 13, 2017 16:35
[2017-04-13 18:16] VITALS: BP 111/62; PULSE 77; RESP 18; TEMP 98.1; O2SAT 96
[2017-04-13] MEDS: hydrOXYzine HCL 50 MG TAB PO PRN (20:55)
[2017-04-13] MEDS: traZODone HCL 50 MG TAB PO SCH (20:55)
[2017-04-13] MEDS: PRAMIPEXOLE DIHYDROCHLORIDE 0.25 MG TAB PO SCH (20:55)
[2017-04-13] MEDS: REMOVE OLD NICODERM (NICOTINE) PATCH T-DERMAL SCH (20:56)
[2017-04-14 06:34] VITALS: BP 113/63; PULSE 70; RESP 18; TEMP 97.7; O2SAT 99
[2017-04-14] MEDS: FOLIC ACID 1 MG TAB PO SCH (08:56)
[2017-04-14] MEDS: buPROPion HCL 150 MG SUSTAINED RELEASE TAB PO SCH ×2 (08:58→20:39)
[2017-04-14] MEDS: SERTRALINE HCL 50 MG TAB PO SCH (09:00)
[2017-04-14] MEDS: NICOTINE 21 MG/24 HR PATCH T-DERMAL SCH (09:00)
[2017-04-14] MEDS: traMADol HCL 50 MG TAB PO PRN ×2 (09:26→20:40)
--- NOTE | 2017-04-14 14:39 | HHI.PYPN ---
Subjective Remarks Pt seen and discussed with staff. She has been compliant with medications and care. She has been more social and engaged in activities on unit. She denies SI/ HI today and reports mood is improving. She did ADLs today. Objective Alert: Yes [place]: Person, Place, Date, Situation Mood: Calm Affect: Restricted Memory Intact: Immediate, Recent, Remote Hallucinations: Other (denies) Delusions: No Delusion Type: Other (denies) Suicidal: Ideation (denies at this time) Homicidal: Ideation (denies) Insight/Judgment poor Vitals/IOs Vital Signs Date Time Temp Pulse Resp B/P (MAP) Pulse Ox O2 Delivery O2 Flow Rate FiO2 04/14/17 06:34 97.7 70 18 113/63 (80) 99 04/10/17 17:55 Room Air Intake and Output 04/14/17 04/14/17 04/15/17 08:00 16:00 00:00 Intake Total 240 ml 480 ml Balance 240 ml 480 ml Assessment & Plan Problem List: (1) Adjustment disorder with mixed disturbance of emotions and conduct ICD Codes: F43.25 - Adjustment disorder with mixed disturbance of emotions and conduct Status: Acute Assessment & Plan Continue current tx plan. Estimated LOS: days Justification for Cont. Inpt. Risk of decompensation Request HC Surrog/Guard Advoc?: Kacey Oleary MD Apr 14, 2017 14:39
[2017-04-14 18:55] VITALS: BP 121/70; PULSE 19; RESP 19; TEMP 97.8; O2SAT 98
[2017-04-14] MEDS: PRAMIPEXOLE DIHYDROCHLORIDE 0.25 MG TAB PO SCH (20:39)
[2017-04-14] MEDS: hydrOXYzine HCL 50 MG TAB PO PRN (20:39)
[2017-04-14] MEDS: REMOVE OLD NICODERM (NICOTINE) PATCH T-DERMAL SCH (20:40)
[2017-04-14] MEDS: traZODone HCL 50 MG TAB PO SCH (20:40)
[2017-04-15 06:13] VITALS: BP 95/64; PULSE 64; RESP 18; TEMP 97.5; O2SAT 95
[2017-04-15] MEDS: SERTRALINE HCL 50 MG TAB PO SCH (08:26)
[2017-04-15] MEDS: buPROPion HCL 150 MG SUSTAINED RELEASE TAB PO SCH (08:26)
[2017-04-15] MEDS: traMADol HCL 50 MG TAB PO PRN (08:26)
[2017-04-15] MEDS: FOLIC ACID 1 MG TAB PO SCH (08:26)
[2017-04-15] MEDS: NICOTINE 21 MG/24 HR PATCH T-DERMAL SCH (09:00)
[2017-04-15] MEDS ORDERED: MIRA0.25 PO (12:22)
[2017-04-15] MEDS ORDERED: FOLI1TAB6 PO (12:22)
[2017-04-15] MEDS ORDERED: TRAZ50TA12 PO (12:22)
[2017-04-15] MEDS ORDERED: BUPR150CR PO (12:22)
[2017-04-15] MEDS ORDERED: ZOLO50TA PO (12:22)
--- NOTE | 2017-04-15 12:27 | HHI.DS ---
Psychiatry Discharge Summary Inpatient Psychiatric care?: Yes Advance Directive: No Reason Not Provided: Due to Patient Condition Mental Health AdvanceDirective: No Health Care Proxy: No Admission Admission Date Apr 10, 2017 at 15:07 Admission Diagnosis: (1) Adjustment disorder with mixed disturbance of emotions and conduct ICD Code: F43.25 - Adjustment disorder with mixed disturbance of emotions and conduct Brief History From Dr. Larson's H&P: This is a 56-year-old female who was brought in under a G[place] act for making suicidal threats to her grandson. Apparently she text and her grandson that she was going to jump off the dumb [place] the patient made the very same statement to the military lawyer who was in his patrol car with her at the time. Apparently the patient has become increasingly depressed over the last 5-6 weeks, she since she stopped taking her Wellbutrin and sertraline. She has an added stressor of being in conflict with her son, who resides at home with her and her . The was called and is willing to have the son move out to a hotel, overnight only. He does not feel he can care for, supervise or protect the patient adequately. Patient describes multiple symptoms of depression including depressed mood, anhedonia, suicidal ideation with plan, feelings of hopelessness and helplessness, decreased energy, diminished self-esteem, social withdrawal, appetite disturbance and sleep disturbance, etc. Finally, the patient has rheumatoid arthritis and reportedly she has Parkinson's disease. She is complaining of significant pain at this time. On my examination today: Patient seen and examined. Chart reviewed. Patient reports that she stopped her psychotropic medications 6 weeks ago. She text that her family member regarding suicide because "I wanted them to stop screaming all the time. I thought if I said that may be date stop." She somewhat halfheartedly denies suicidal ideation now. She does admit to feeling depressed. Denies hopelessness or worthlessness. Endorses several stressors including medical stressors of rheumatoid arthritis and kidney disease. Also is quite despondent because she cannot work. Sleep and appetite poor. No hypomanic or manic symptoms. No psychotic symptoms. Remainder of the psychiatric ROS is negative. Past psychiatric history: Patient endorses a history of depression. Follows with Dr. Riggs. Denies a history of psychiatric admissions or suicide attempts. Family history: Patient reports a son with bipolar disorder. Chemical dependency history: Patient denies any abuse of drugs or alcohol. Social history: Patient reports that she lives with her and son. She has 2 other children. 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 She is not presently able to work. Tobacco Use In Past 30 Days: No Tobacco Past 30 Days Alcohol Use: 2-3 Times Per Week Hospital Course Patient show compliance with treatment and medications from admission, the patient initially some mild isolation. There is situation of antidepressants, and the safety of unit allow the patient to gain some insight into her issues. She had a good weekend. And conversations with her . Patient now denies suicidality homicidality voices or visions. She is going to be compliant with medications upon discharge and follow-up psychiatric services as arranged by our counselor. Thus patient will be discharged today to follow-up mental health services in the community, Rx 1 month Results Blood Pressure 95 / 64 Vital Signs Date Time Temp Pulse Resp B/P (MAP) Pulse Ox O2 Delivery O2 Flow Rate FiO2 04/15/17 06:13 97.5 64 18 95/64 (74) 95 Laboratory Results Test 04/11/17 08:56 Cholesterol Level 236 MG/DL (120-200) HDL Cholesterol 58.1 MG/DL (40.0-60.0) Hemoglobin A1c 5.5 % (4.3-6.0) LDL Cholesterol 138 MG/DL (0-99) Triglycerides Level 201 MG/DL (42-150) Summary of Procedures None done Pending results at discharge: No Medications # of Antipsychotic meds at D/C: 0 Approp Antipsych med options 1 - Minimum of three failed multiple trials of monotherapy. 2 - Documented plan to taper to monotherapy due to previous use of multiple meds OR cross-taper in progress at D/C. 3 - Documentation of augmentation of Clozapine. 4 - Justification other than those listed in allowable values 1-3, document here : Discharge Discharge Date: Apr 15, 2017 Discharge Diagnosis: (1) Adjustment disorder with mixed disturbance of emotions and conduct Diagnosis: Principal ICD Code: F43.25 - Adjustment disorder with mixed disturbance of emotions and conduct Status: Acute Mental Status Exam at Disch Alert oriented thin slender white female, calm and cooperative with me, she is normal active, mood is euthymic with good range intensity of her affect. Speech rate and rhythm are within normal limits, there are no formal thought disorders. No auditory or visual hallucinations. No delusions. Insight and judgment poor to fair. Cognition grossly intact Pt Condition on Discharge: Stable Discharge Disposition: Discharge Home Discharge Instructions Diet Instructions: As Tolerated, No Restrictions Activities you can perform: Regular-No Restrictions Discharge Time > 30 minutes Discharge/Advance Care Plan Health Problems: (1) Adjustment disorder with mixed disturbance of emotions and conduct Goals to promote your health * To prevent worsening of your condition and complications * To maintain your health at the optimal level Directions to meet your goals Take your medications as prescribed Follow your dietary instruction Follow activity as directed Keep your appointments as scheduled Take your immunizations and boosters as scheduled If your symptoms worsen call your PCP, if no PCP go to Urgent Care Center or Emergency Room For 11/03 questions related to your inpatient stay or results of tests pending at discharge, please contact Dr. Juan Carlos Brown at Smoking is Dangerous to Your Health. Avoid second hand smoking Juan Carlos Brown MD Apr 15, 2017 12:27
== END 2017-04-15 14:55 | disposition home or self-care (01) | DRG 882 ==
LOC: NEDAMB 16:50 → NEDA 04-10 15:07 → H250 04-10 22:10
PROVIDERS: ADMIT Psychiatry & Neurology Psychiatry; ATTEND Psychiatry & Neurology Psychiatry
DX: F43.25 Adjustment disorder with mixed disturbance of emotions and conduct (principal); G20 Parkinson's disease; M06.9 Rheumatoid arthritis, unspecified; M81.0 Age-related osteoporosis without current pathological fracture; Z96.649 Presence of unspecified artificial hip joint; F17.210 Nicotine dependence, cigarettes, uncomplicated; E78.5 Hyperlipidemia, unspecified; Z72.89 Other problems related to lifestyle; Y90.4 Blood alcohol level of 80-99 mg/100 ml
CPT/HCPCS: 80053; 80061; 80307; 81001; 82306; 82607; 83036; 84443; 85025; 85610; 85730; 93005